=== PATIENT | male | born 1945 | race Caucasian/White ===

== ENCOUNTER 2020-04-08 17:57 | Outpatient (CLI) | payer MEDICARE, SELFPAY ==
[2020-04-08 18:30] LABS: Basophils % 0.4 %; Eosinophils # 0.1 10^3/uL (0.0-0.8); Eosinophils % 1.2 %; Hematocrit 42.2 % (42.0-52.0); Hemoglobin 13.2 g/dL (11.7-16.6); Lymphocytes % 13.1 %; Mean Corpuscular HGB Conc 31.3 g/dL (30.0-36.0); Mean Corpuscular Hemoglobin 28.9 pg (28.0-34.0); Mean Corpuscular Volume 92.3 fL (80-94); Mean Platelet Volume 11.8 fL (7.4-10.4); Monocytes # 0.9 10^3/uL (0.2-0.9); Monocytes % 11.2 %; Neutrophils # 5.58 10^3/uL (1.8-7.7); Neutrophils % 73.7 %; Nucleated Red Blood Cells % 0 %; Platelet Count 173 10^3/cmm (130-400); Red Blood Count 4.57 10^6/uL (4.1-5.3); Red Cell Distribution Width 16.9 % (12.1-15.1); White Blood Count 7.6 10^3/uL (4.0-10.0)
[2020-04-08 19:12] LABS: Alanine Aminotransferase 11 U/L (0-41); Albumin Level 3.5 g/dL (3.5-5.2); Alkaline Phosphatase 65 IU/L (40-130); Aspartate Amino Transferase 17 U/L (0-40); Blood Urea Nitrogen 17 mg/dL (8-23); Carbon Dioxide 32 mmol/L (22-29); Chloride 93 mmol/L (98-107); Globulin 3.2 g/dL (1.3-4.6); Glucose 109 mg/dL (65-115); NT Pro B Type Natriuretic Pept 3243 pg/mL (0-125); Osmolality Calculated 280 mOsm/kg (285-295); Sodium 134 mmol/L (136-145); Total Bilirubin 1.1 mg/dL (0.15-1.2); Total Protein 6.7 g/dL (6.6-8.7)
== END 2020-04-08 17:58 | disposition home or self-care (01) ==
LOC: LAB 18:02
PROVIDERS: Visit Provider Internal Medicine
DX: E87.1 Hypo-osmolality and hyponatremia (principal); R60.0 Localized edema; R09.02 Hypoxemia; Z86.711 Personal history of pulmonary embolism; R29.6 Repeated falls; I11.0 Hypertensive heart disease with heart failure; I50.9 Heart failure, unspecified
CPT/HCPCS: 80053; 83880; 85025

== ENCOUNTER 2020-05-16 15:54 | Outpatient (CLI) | payer OTHER, MEDICARE, MEDICAID, SELFPAY ==
[2020-05-16 17:08] LABS: Blood Urea Nitrogen 21 mg/dL (8-23); Calcium 11.3 mg/dL (8.5-10.5); Carbon Dioxide 34 mmol/L (22-29); Chloride 86 mmol/L (98-107); Glucose 113 mg/dL (65-115); Osmolality Calculated 280 mOsm/kg (285-295); Sodium 133 mmol/L (136-145)
== END 2020-05-16 15:55 | disposition home or self-care (01) ==
LOC: LAB 16:01
PROVIDERS: Visit Provider Internal Medicine
DX: I50.9 Heart failure, unspecified (principal)
CPT/HCPCS: 80048